=== PATIENT | male | born 1960 | race Caucasian/White ===

== ENCOUNTER → 2017-04-18 12:47 | Outpatient (CLI) | payer MEDICARE, SELFPAY ==
[2017-04-18 16:10] VITALS: BP 140/92; BP 170/97; PULSE 74; PULSE 80; PULSE 98; RESP 18; RESP 22; O2SAT 95; O2SAT 98
== END ==
PROVIDERS: PCP Family Medicine; Visit Provider Internal Medicine
DX: J45.909 Unspecified asthma, uncomplicated (principal); K21.9 Gastro-esophageal reflux disease without esophagitis; I25.10 Atherosclerotic heart disease of native coronary artery without angina pectoris; G47.33 Obstructive sleep apnea (adult) (pediatric); Z87.891 Personal history of nicotine dependence
CPT/HCPCS: 94060; 94618; 94640; 94726; 94729

== ENCOUNTER → 2017-05-01 13:50 | Outpatient (POV) | payer MEDICARE, SELFPAY | PROVIDERS: PCP Family Medicine; Visit Provider Internal Medicine | DX: Z00.00 Encounter for general adult medical examination without abnormal findings (principal) ==

== ENCOUNTER → 2017-07-12 15:28 | Outpatient (CLI) | payer MEDICARE, SELFPAY ==
--- NOTE | 2017-07-12 15:31 | XR_ITS ---
XR ankle wt bearing LT min 3V HISTORY: ITS.REASON: pain ORDERING PHYSICIAN: Nan Aguilar DPM PATIENT AGE: 56 years Comparison: 08/31/2015 FINDINGS: There are multiple small bone islands. Hypertrophic changes are present at the distal aspect of the medial and lateral malleolus with calcification of the tip of the medial malleolus consistent with an old avulsion fracture. The joint space is well-preserved. No acute fracture or dislocation. No lytic changes. Nonspecific calcifications are present at the Achilles insertion IMPRESSION: 1 osteopoikilosis. 2. Hypertrophic changes at the medial and lateral malleolus with old avulsion injury at the tip of the medial malleolus
--- NOTE | 2017-07-12 15:31 | XR_ITS ---
XR foot wt bearing RT 3V HISTORY: Foot pain ITS.REASON: pain ORDERING PHYSICIAN: Nan Aguilar DPM PATIENT AGE: 56 years COMPARISON: 08/31/2015 FINDINGS: No fracture or dislocation. No lytic or blastic change. There is normal mineralization.. The joint spaces are well-preserved. No significant degenerative/arthritic changes. No erosive changes evident. There are numerous small bone islands within the fluid and ankle. Mild hypertrophic changes are present along the dorsal distal aspect of the first metatarsal and midfoot dorsally. There is normal alignment. IMPRESSION: 1. Osteopoikilosis 2. Mild hypertrophic changes of the midfoot dorsally and the distal first metatarsal
--- NOTE | 2017-07-12 15:31 | XR_ITS ---
XR foot wt bearing LT 3V HISTORY: Foot pain ITS.REASON: pain ORDERING PHYSICIAN: Nan Aguilar DPM PATIENT AGE: 56 years COMPARISON: 04/19/2015 FINDINGS: Numerous small bone islands are present involving the bony structures of the foot and ankle. No fracture or dislocation. No lytic changes. Hypertrophic changes are present at the talonavicular joint and metatarsal metatarsal junction dorsally. Normal alignment. IMPRESSION: 1. Osteopoikilosis. 2. Mild degenerative changes with bony hypertrophic changes as described above
--- NOTE | 2017-07-12 15:31 | XR_ITS ---
XR ankle wt bearing RT min 3V HISTORY: ITS.REASON: pain ORDERING PHYSICIAN: Nan Aguilar DPM PATIENT AGE: 56 years Comparison: None FINDINGS: There is minimal hypertrophic change along the tip of the medial malleolus. Multiple bone islands are present. No fracture or dislocation. No significant change from 04/19/2015. IMPRESSION: Osteopoikilosis with minimal degenerative change
== END ==
PROVIDERS: PCP Family Medicine; Visit Provider Podiatrist
DX: M79.671 Pain in right foot; M79.672 Pain in left foot
CPT/HCPCS: 73610; 73630

== ENCOUNTER → 2017-09-11 13:01 | Outpatient (POV) | payer MEDICARE, SELFPAY | PROVIDERS: PCP Family Medicine; Visit Provider Internal Medicine | DX: Z00.00 Encounter for general adult medical examination without abnormal findings (principal) ==

== ENCOUNTER → 2017-10-01 12:57 | Outpatient (CLI) | payer MEDICARE, SELFPAY ==
--- NOTE | 2017-10-01 13:10 | CT_ITS ---
CT chest w con HISTORY: ITS.REASON: EXTRINSIC ASTHMA,BRONCHIECTASIS ORDERING PHYSICIAN: Adriel Carreno MD PATIENT AGE: 56 years COMPARISON: 05/21/2013 TECHNIQUE: Axial images obtained following the administration of 75 mL of Isovue 370 . Sagittal, and coronal reformatted images are also generated and reviewed. All CT scans at the facility use one or more dose reduction, viz: automated exposure control, ma/kV adjustment per patient size (including targeted exams where dose is matched to indication, i.e. head), or iterative reconstruction technique. High-resolution images are also generated and reviewed FINDINGS: No mediastinal or hilar mass or adenopathy. Coronary artery calcification and stents noted. Normal heart size. No evidence of pericardial effusion. There are scattered granulomas.. No suspicious pulmonary nodule. No effusions or infiltrates. There is hyperinflation with attenuation of the peripheral pulmonary vessels consistent with obstructive chronic bronchitis. No central obstructing lesions are evident. No bronchiectasis. No lobar consolidation or collapse. No intralobular septal thickening. There are some minimal fibrotic change in the lung bases There is mild bilateral gynecomastia. There are multiple sclerotic foci within the visualized bony structures consistent with multiple bone islands. Not significant change from the previous exam and is consistent with Osteopoikilosis. IMPRESSION: 1. Overall no change in the hyperinflation with attenuation of the peripheral pulmonary vessels consistent with COPD. No obvious bronchiectasis 2. Osteopoikilosis
== END ==
PROVIDERS: PCP Family Medicine; Visit Provider Internal Medicine
DX: J45.909 Unspecified asthma, uncomplicated (principal); J47.9 Bronchiectasis, uncomplicated
CPT/HCPCS: 71260

== ENCOUNTER 2017-10-01 13:31 | Outpatient (RCR) | payer MEDICARE, SELFPAY | END 2017-10-01 13:32 | disposition home or self-care (01) | LOC: PT 13:31 | PROVIDERS: PCP Family Medicine; Visit Provider Internal Medicine | DX: J45.909 Unspecified asthma, uncomplicated (principal) | CPT/HCPCS: G0237; G0238 ==

== ENCOUNTER → 2017-11-07 13:01 | Outpatient (CLI) | payer MEDICARE, SELFPAY ==
--- NOTE | 2017-11-07 13:03 | MR_ITS ---
MR shoulder LT w con HISTORY:Left arm pain, left shoulder pain. Hematoma left superior scapula, pain when raising arm ITS.REASON: hematoma ORDERING PHYSICIAN: Abel Briones MD PATIENT AGE: 57 years Comparison: None TECHNIQUE: Standard multiplanar multiecho sequences are performed without and with gadolinium enhancement. FINDINGS: There is a lobulated soft tissue mass within the subcutaneous region of the left shoulder. This is superficial to the trapezius muscle with a preserved fat plane between the mass and trapezius muscle. This measures 6.7 cm transverse, 4.3 cm cephalad to caudad, and 2.2 cm in AP dimension. This has a heterogeneous appearance with mostly hypointensity on T1, hyperintensity on T2 demonstrating intense contrast enhancement. Multiple lobules are present within the lesion which have fat signal intensity hyperintense on T1 and showing fat suppression on the fat suppressed images. The lesion is well circumscribed and does not appear to involve the adjacent muscle or scapula. There is some indentation of the trapezius but no evidence of invasion. It is concerning this this represents a soft tissue tumor as opposed to a hematoma. The signal characteristics are not characteristic for a hematoma. 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 Signal characteristics are not typical for hematoma. No obvious muscular invasion
--- NOTE | 2017-11-07 14:31 | HMH.ITSHM ---
potassium furosemide aspirin advair diskus crestor pantoprazole sodium ventolin albuterol hfa doxycycline hyclate irbesartan zyrtec metformin ibuprophen aceteminophen
== END ==
PROVIDERS: PCP Family Medicine; Visit Provider Surgery
DX: T14.8XXA Other injury of unspecified body region, initial encounter (principal); M25.512 Pain in left shoulder
CPT/HCPCS: 73222; A9576

== ENCOUNTER → 2018-02-19 13:01 | Outpatient (POV) | payer MEDICARE, SELFPAY | PROVIDERS: Visit Provider Dermatology | DX: Z00.00 Encounter for general adult medical examination without abnormal findings (principal) ==

== ENCOUNTER → 2018-03-26 10:50 | Outpatient (POV) | payer MEDICARE, SELFPAY | PROVIDERS: Visit Provider Internal Medicine | DX: Z00.00 Encounter for general adult medical examination without abnormal findings (principal) ==

== ENCOUNTER → 2018-04-30 13:27 | Outpatient (POV) | payer MEDICARE, SELFPAY | PROVIDERS: Visit Provider Dermatology | DX: Z00.00 Encounter for general adult medical examination without abnormal findings (principal) ==

== ENCOUNTER → 2018-04-30 14:54 | Outpatient (POV) | payer MEDICARE, SELFPAY | PROVIDERS: Visit Provider Internal Medicine | DX: Z00.00 Encounter for general adult medical examination without abnormal findings (principal) ==

== ENCOUNTER → 2018-11-11 09:52 | Outpatient (CLI) | payer MEDICARE, SELFPAY ==
[2018-11-11 16:20] VITALS: PULSE 63; PULSE 68
== END ==
PROVIDERS: PCP Family Medicine; Visit Provider Internal Medicine
DX: J44.9 Chronic obstructive pulmonary disease, unspecified (principal)
CPT/HCPCS: 94060; 94618; 94640; 94726; 94729

== ENCOUNTER → 2018-11-19 14:28 | Outpatient (POV) | payer MEDICARE, SELFPAY | PROVIDERS: Visit Provider Dermatology | DX: Z00.00 Encounter for general adult medical examination without abnormal findings (principal) ==

== ENCOUNTER → 2019-02-17 12:16 | Outpatient (CLI) | payer MEDICARE, SELFPAY | PROVIDERS: PCP Family Medicine; Visit Provider Urology | DX: E78.5 Hyperlipidemia, unspecified (principal); I10 Essential (primary) hypertension; I25.10 Atherosclerotic heart disease of native coronary artery without angina pectoris; R00.2 Palpitations; R06.00 Dyspnea, unspecified; Z82.49 Family history of ischemic heart disease and other diseases of the circulatory system | CPT/HCPCS: 93270 ==

== ENCOUNTER → 2019-03-03 06:44 | Outpatient (CLI) | payer MEDICARE, SELFPAY ==
--- NOTE | 2019-03-03 | CA_ITS ---
APPROVED REPORT Exam: Pharmacologic Technologist: Aaliyah Rader Ht: 5 ft 11 in Wt: 270 lbs BSA: 2.40 m2 HR: 79 bpm BP: 153/75 mmHg Indications: Chest pain, Shortness of Breath, palpitations Medical History Medications: Furosemide (LASIX),,,,, Aspirin,,,,, Metformin,,,,, Losartan,,,,, Pantoprazole,,,,, Glipizide,,,,, Montelukast,,,,, Finasteride,,,,, Nitroglycerin,,,,, RoSUVASTATIN,,,,, DOxycycline,,,,, Potassium,,,,, Stress Test Details Test: LEXISCAN HR Resting HR: 67 bpm Max Heart Rate (APMHR): 160 bpm Max HR Achieved: 119 bpm Target HR (85% APMHR): 136 bpm % of APMHR: 74 Recovery HR: 87 bpm BP Resting BP: 153.0/75.0 mmHg Max BP: 153.0/75.0 mmHg Recovery BP: 142.0/75.0 mmHg ECG Clinical Exercise duration: 04:00 min Highest Stage Achieved: Stress ECG Conclusion Resting ECG: Sinus rhythm Lexiscan portion completed. Patient complained of nausea and stomach cramping during peak infusion. Symptoms: Nausea and stomach cramping. Resolved in recovery. No chest pain. No shortness of breath. Arrhythmias/Ectopy: Occasional PVC ST-T Changes: less than 1.[address] depression. Conclusion: Images to follow. Electronically signed by : Kin Eaton, 03/03/2019 19:50:55
--- NOTE | 2019-03-03 06:45 | CA_ITS ---
APPROVED REPORT EXAM: Comprehensive 2D, Doppler, and color-flow Echocardiogram [employer] Architect: Aubree Mansfield CRT Ht: 5 ft 11 in Wt: 264lbs BSA: 2.37 BP: 153/74 mmHg Indications: Chest Pain, Shortness of Breath, Obesity, CAD, Hyperlipidemia, Hypertension/HDD 2D Dimensions LVOT 2.16 cm (M/F) 1.5-2.5 M-Mode Dimensions RVDd 3.23 cm (0.9-2.6) LVDd 5.27 cm (3.5-5.7) LVDs 3.57 cm (3.5-5.7) IVSd 1.10 cm (0.6-1.1) PWd 0.89 cm (0.6-1.1) EF (Teich) 60.10% FS 32.30% EDV (Teich) 133.60 mL ESV (Teich) 53.30 mL LV Diastology E/A Ratio 0.73 Mitral Valve MV A Velocity 87.00 (40-130 cm/s) Left Ventricle Left atrium is mildly enlarged, left ventricle is normal size, mild concentric left ventricular hypertrophy, visually estimated ejection fraction 55% with no regional wall motion abnormality. Grade 1 diastolic dysfunction seen without tissue Doppler evidence of raise left atrial pressure. Right Ventricle Right atrium and right ventricle mildly enlarged with normal contractility. Aortic Valve Aortic valve is minimally thickened and fibrosed, there is no aortic stenosis or aortic insufficiency. Mitral Valve Mitral valve leaflets are minimally thickened, there is mild mitral regurgitation. Tricuspid Valve Tricuspid valve is grossly normal, there is mild tricuspid regurgitation. Tricuspid radiation jet velocity is inadequate for calculation of the right ventricular systolic pressure. Pulmonic Valve Pulmonic valve is poorly visualized. Great Vessels Aortic root is normal size. Pericardium No significant pericardial effusion noted. Conclusion 1. Mild mitral enlargement, normal left ventricular size, mild concentric left ventricular hypertrophy, visually estimated ejection fraction 55% with no regional wall motion abnormality, grade 1 diastolic dysfunction seen without tissue Doppler evidence of raise left atrial pressure. 2. Mildly enlarged right ventricle with normal contractility. 3. Mild mitral and tricuspid regurgitation. 4. No significant pericardial effusion noted. Electronically signed by : Kin Eaton, 03/03/2019 20:34:53
--- NOTE | 2019-03-03 06:49 | NM_ITS ---
APPROVED REPORT Exam: Nuclear Stress Test Indication: Chest pain, SOB, HTN, CAD, DM, High Cholesterol, Family history Patient Location: Outpatient Stress Tech: Aaliyah Rader [place] Tech:Rose Nguyen, ARRT, RT (R)(N) Ht: 5 ft 11 in Wt: 270 lbs HR: 79 bpm BP: 153/75 mmHg BSA: 2.40 m2 BMI: 37.6 History: Chest pain, SOB, HTN, CAD, DM, High Cholesterol, Family history Procedure: Patient received a 0.4 mg of intravenous Lexiscan, resting heart rate 79 bpm, resting blood pressure 153/75 mmHg, with Lexiscan maximum heart rate achived was 109 bpm which is % of the maximum predicted heart rate and blood pressure was 149/65 mmHg. With Lexiscan, patient denied any complaint of chest pain. Electrocardiogram Resting electrocardiogram showed sinus rhythm, nonspecific ST-T changes, with Lexiscan there is less than 1.[address] segment depression noted from the baseline EKG. The EKG portion of the Lexiscan Myoview is nondiagnostic. Cardiac Stress and Resting SPECT Images: Cardiac Stress and Resting SPECT images were obtained using technetium 99m Myoview 30.2 mCi stress and 10.86 mCi at rest. Gated SPECT with analysis of segmental wall motion and calculation of the ejection fraction also done. Cardiac stress and rest SPECT images show decreases activity in the anteroapical wall which partially improves on the resting images suggestive of mixed ischemia and scar, computer derived ejection fraction is 65% with mild anteroapical wall hypokinesis. Right ventricle is normal size and contractility. Conclusion: 1. The EKG portion of the Lexiscan Myoview is nondiagnostic. 2. Scintigraphic evidence of mixed ischemia and scar involving the distal anteroapical wall. Computer derived ejection fraction 65% with segmental wall motion abnormality described above, right ventricle is normal size and contractility. 3. Abnormal Lexiscan Myoview study. Electronically signed by : Kin Eaton, 03/03/2019 19:53:44
--- NOTE | 2019-03-03 07:36 | HMH.ITSHM ---
Current Home Medications as stated by this patient Norman Hanley or mechanical service representative. []DOXYCYCLINE FINASTERIDE VENTOLIN NITRO CLARITIN ASA SINGULAIR PANTOPRAZOLE LOSARTAN GLIPIZIDE POTASSIUM FUROSEMIDE CRESTOR ALBUTEROL METFORMIN ADVAIR KARUNAE SoniaYRNIHARIKA STALLWORTHA
== END ==
PROVIDERS: PCP Family Medicine; Visit Provider Urology
DX: E78.5 Hyperlipidemia, unspecified (principal); I10 Essential (primary) hypertension; I25.10 Atherosclerotic heart disease of native coronary artery without angina pectoris; R00.2 Palpitations; R06.00 Dyspnea, unspecified; Z82.49 Family history of ischemic heart disease and other diseases of the circulatory system; R07.9 Chest pain, unspecified
CPT/HCPCS: 78452; 93017; 93306; A9502; J2785

== ENCOUNTER → 2019-03-10 12:46 | Outpatient (CLI) | payer MEDICARE, SELFPAY ==
--- NOTE | 2019-03-10 12:51 | US_ITS ---
PROCEDURE: US ABD. AORTA SCREENING CLINICAL INDICATION: to rule out AAA Evaluate for aortic aneurysm COMPARISON: No exams were available for comparison FINDINGS: Ultrasound performed the abdominal aorta and proximal common iliacs artery. No evidence of aortic aneurysm. IMPRESSION: Negative for abdominal aortic aneurysm Dictated by: Oj Cardoso MD 03/10/2019 17:30 Electronically signed by Oj Cardoso MD in [place] 03/10/2019 17:30
[2019-03-10 15:35] LABS: Alanine Aminotransferase 63 U/L (12-78); Albumin Level 4.1 gm/dL (3.4-5.0); Alkaline Phosphatase 56 U/L (46-116); Aspartate Amino Transferase 25 U/L (15-37); Bilirubin,Direct 0.1 mg/dL (0.0-0.2); Bilirubin,Indirect 0.4 mg/dL (0.0-0.9); Bilirubin,Total 0.5 mg/dL (0.2-1.0); Chol/HDL Ratio 3.8 (1-3.5); Cholesterol 106 mg/dL (140-200); HDL Cholesterol 28 mg/dL (27-67); LDL Cholesterol 42 mg/dL (0-130); Triglycerides 178 mg/dL (30-200); VLDL Cholesterol 36 mg/dL (0-40)
[2019-03-11 14:01] LABS: Testosterone,Total 201 ng/dL (264-916)
== END ==
PROVIDERS: PCP Family Medicine; Visit Provider Internal Medicine
DX: I20.8 Other forms of angina pectoris; E78.2 Mixed hyperlipidemia; I10 Essential (primary) hypertension; R00.2 Palpitations; R06.09 Other forms of dyspnea; R94.39 Abnormal result of other cardiovascular function study; G47.33 Obstructive sleep apnea (adult) (pediatric); Z87.891 Personal history of nicotine dependence; N52.9 Male erectile dysfunction, unspecified
CPT/HCPCS: 36415; 76705; 80061; 80076; 84403

== ENCOUNTER → 2019-03-19 10:23 | Outpatient (CLI) | payer MEDICARE, SELFPAY ==
[2019-03-19 10:41] LABS: Basophils % 0.3 % (0.1-2.0); Eosinophils # 0.2 K/mm3 (0.0-0.4); Eosinophils % 2.7 % (0.1-12.0); Hematocrit 42.8 % (42.0-52.0); Hemoglobin 14.6 g/dL (14.1-18.0); Lymphocytes # 1.4 K/mm3 (0.7-4.5); Lymphocytes % 20.6 % (10-50); Mean Corpuscular HGB Conc 34.2 g/dL (31.8-35.4); Mean Corpuscular Hemoglobin 27.6 pg (27.0-31.2); Mean Corpuscular Volume 80.8 fl (80-94); Mean Platelet Volume 7.7 fl (7.4-10.4); Monocytes # 0.3 K/mm3 (0.1-1.0); Monocytes % 4.3 % (1.7-9.3); Neutrophils # 4.8 K/mm3 (1.8-7.8); Neutrophils % 72.1 % (37.0-80.0); Platelet Count 178 K/mm3 (142-424); Red Cell Distribution Width 13.8 % (11.5-17.5); White Blood Count 6.6 K/mm3 (4.8-10.8)
[2019-03-19 10:46] LABS: Anion Gap 12.8 mEq/L (5-15); Blood Urea Nitrogen 21 mg/dL (7-18); Calcium 9.1 mg/dL (8.5-10.1); Carbon Dioxide 27 mmol/L (21.0-32.0); Chloride 102 mmol/L (98-107); Creatinine,Serum 1.11 mg/dL (0.70-1.30); Estimated Glomerular Filt Rate 68 ml/min (>60); GFR (African American) 82 ML/MIN (>60); Glucose 243 mg/dL (74-106); Potassium 3.8 mmoL/L (3.5-5.1); Sodium 138 mmol/L (137-145)
== END ==
PROVIDERS: Visit Provider Internal Medicine Cardiovascular Disease
DX: R06.09 Other forms of dyspnea (principal); I25.10 Atherosclerotic heart disease of native coronary artery without angina pectoris
CPT/HCPCS: 36415; 80048; 83880; 85025

== ENCOUNTER 2019-03-19 12:29 | Outpatient (RCR) | payer MEDICARE, SELFPAY | END 2019-05-07 10:30 | disposition home or self-care (01) | LOC: PT 12:29 | PROVIDERS: Visit Provider Internal Medicine | DX: Z98.61 Coronary angioplasty status (principal) | CPT/HCPCS: 93798 ==

== ENCOUNTER → 2019-03-24 15:31 | Outpatient (CLI) | payer MEDICARE, SELFPAY ==
[2019-03-24 18:09] LABS: Blood Urea Nitrogen 16 mg/dL (7-18); Calcium 9.3 mg/dL (8.5-10.1); Carbon Dioxide 26 mmol/L (21.0-32.0); Chloride 106 mmol/L (98-107); Estimated Glomerular Filt Rate 86 ml/min (>60); GFR (African American) 104 ML/MIN (>60); Glucose 125 mg/dL (74-106); Sodium 143 mmol/L (137-145)
== END ==
PROVIDERS: Visit Provider Urology
DX: E78.2 Mixed hyperlipidemia (principal); G47.33 Obstructive sleep apnea (adult) (pediatric); I10 Essential (primary) hypertension; I25.10 Atherosclerotic heart disease of native coronary artery without angina pectoris; I27.20 Pulmonary hypertension, unspecified; I51.89 Other ill-defined heart diseases; K21.9 Gastro-esophageal reflux disease without esophagitis; R06.09 Other forms of dyspnea; R07.9 Chest pain, unspecified
CPT/HCPCS: 36415; 80048

== ENCOUNTER → 2019-04-03 14:45 | Outpatient (CLI) | payer MEDICARE, SELFPAY ==
--- NOTE | 2019-04-03 14:49 | XR_ITS ---
PROCEDURE: XR FOOT WT BEARING LT 3V CLINICAL INDICATION: foot pain COMPARISON: FOOT LT 3V from 04/19/2015 FOOT RT 3V from 08/31/2015 [id number] XR foot wt bearing LT 3V from 07/12/2017 [id number] XR foot wt bearing RT 3V from 07/12/2017 FINDINGS: No fracture or dislocation. No lytic or blastic change. There is normal mineralization. Osteoarthritic changes are present at the 1st MTP joint, talonavicular, navicular cuneiform and metatarsal tarsal joint. Other findings:There are numerous sclerotic small foci involving the generalized bony structures consistent with osteopoikilosis. There is borderline pes planus IMPRESSION: Osteoarthritic change with osteopoikilosis Dictated by: Oj Cardoso MD 04/03/2019 15:58 Electronically signed by Oj Cardoso MD in [place] 04/03/2019 15:58
--- NOTE | 2019-04-03 14:49 | XR_ITS ---
PROCEDURE: XR FOOT WT BEARING RT 3V CLINICAL INDICATION: foot pain COMPARISON: FOOT LT 3V from 04/19/2015 FOOT RT 3V from 08/31/2015 [id number] XR foot wt bearing LT 3V from 07/12/2017 [id number] XR foot wt bearing RT 3V from 07/12/2017 FINDINGS: Minimal osteoarthritic changes are present at the talonavicular joint, navicular cuneiform joint, and tarsal metatarsal junction. There are numerous small punctate sclerotic foci of the generalized bony structures consistent with osteopoikilosis. No fracture or dislocation Other findings:None. IMPRESSION: Osteopoikilosis with mild degenerative changes. Overall no significant change Dictated by: Oj Cardoso MD 04/03/2019 15:59 Electronically signed by Oj Cardoso MD in [place] 04/03/2019 15:59
== END ==
PROVIDERS: PCP Family Medicine; Visit Provider Podiatrist
DX: M79.672 Pain in left foot (principal); M79.671 Pain in right foot
CPT/HCPCS: 73630

== ENCOUNTER → 2019-06-10 14:10 | Outpatient (POV) | payer MEDICARE, SELFPAY | PROVIDERS: PCP Family Medicine; Visit Provider Physician Assistant | DX: Z00.00 Encounter for general adult medical examination without abnormal findings (principal) ==

== ENCOUNTER 2019-06-26 15:54 | Emergency (ER) | payer MEDICARE, SELFPAY ==
[2019-06-26 16:28] VITALS: BP 149/68; PULSE 73; RESP 19; TEMP 36.7; O2SAT 99; BMI 35.6
--- NOTE | 2019-06-26 16:33 | HMH.EDUTC ---
[facility] [place] Disposition Clinical Impression: Ingrown toenail Disposition: Home, Self-Care Condition on Discharge: Good Instructions: Ingrown Toenail, DI for Ingrown Toenail Additional Instructions: Follow up with Podiatry as advised for further treatment and follow up for ingrown toenail *Soak foot in warm water and epson salt may help to soften the skin around the toe and help with pain and swelling *Neosporin or Bacitracin around the toenail area may help with prevention of infection if toe is looking red and swollen Return if needed FOllow up with family doctor if needed or any signs of infection such as redness, drainage or streaks Straight to ER if any life threatening symptoms Prescriptions: Bacitracin [Bacitracin Oint 0.9GM UDP] 1 each TP TID 10 Days #30 packet Transmission Status: Pending to [id number] Referrals: Tushar Sánchez [Primary Care Provider] - As needed Yesica Easley APRN [Nurse Practitioner] - As needed (Follow up with Dr Aguilar or Yesica Easley as needed for ingrown toenail) Time of Disposition: 16:58 Medical Decision Making - Alvarez Inquiry Pt receiving controlled substance: No Alvarez was queried for this patient: No Vital Signs: 06/26/19 16:28 Temperature 98.1 F Temperature Source Oral Pulse Rate [Right Brachial] 73 Respiratory Rate 19 Blood Pressure [Right Arm] 149/68 H Blood Pressure Mean [Right Arm] 95 Blood Pressure Source [Right Arm] Automatic Cuff Blood Pressure Position [Right Arm] Sitting 02 Sat by Pulse Oximetry 99 - Physician Consults Physician Consulted: Yesica Singh APRN Time: 16:35 Reason -: Podiatry Eval/Care Comment/Response: Yesica Easley APRN spoke with her about the patient and she advised she will come down from Clinic and look at ingrown nail and talk with patient and do a nail cut back if needed - Reevaluation(s) Time: 16:48 Reevaluation #1: Yesica Easley APRN at bedside trimming nail back Patient tolerating well neosporin applied after finishing and patient advised to keep follow up appointment at the Podiatry Clinic as scheduled [facility] [place] HPI - General Stated complaint: R foot Big Toe ingrown Time Seen by Provider: 06/26/19 16:33 Mode of Arrival: Ambulatory Source of Information: Patient Limitations: No Limitations Description of Symptoms (Recalled from Triage Doc. by RN): Pt has been having trouble with an ingrown toenail on his right great toe for 4 days HEENT Symptoms (Recalled from RN notes): No Resp Symptoms (Recalled from RN notes): No Skin Symptoms (Recalled from RN notes): No MS Symptoms (Recalled from RN notes): No Functional Status (Recalled from RN notes): na - History of Present Illness Provider Complaint: Patient state that he has been having trouble out of ingrown toe nail for the last 4 days State that he has been doing cardiac rehab, and takes plavix and it hurts when he tries to walk States that he has been taking a pair of scissors and trying to dig the nail out but has a corner that is poking him States that he usually sees Dr Aguilar but called the clinic earlier and they couldnt get him in so he came to see if we could get it out - Related Data Home Medications Medication Instructions Recorded Confirmed albuterol sulfate 90 mcg/actuation 2 puffs INHALATION QID 17 Days 05/29/17 06/10/19 aerosol inhaler montelukast 10 mg tablet 10 mg PO HS 90 Days 05/29/17 06/10/19 pantoprazole 40 mg tablet,delayed 40 mg PO BID 30 Days 05/29/17 06/10/19 release metformin 500 mg tablet 1,000 mg PO BID 90 Days #360 tab 02/19/18 06/10/19 Aspirin [Aspir 81] 81 mg PO DAILY 12/20/18 06/10/19 Potassium Chloride [Pot Chlor 10 10 meq PO DAILY 12/20/18 06/10/19 mEq Tab] finasteride 5 mg tablet 5 mg PO DAILY 02/17/19 06/10/19 glipizide 2.5 mg tablet, extended 2.5 mg PO DAILY 02/17/19 06/10/19 release 24 hr nitroglycerin 0.4 mg sublingual 0.4 mg SUBLINGUAL Q5M PRN 02/17/19 06/10/19 tablet rosuvastatin 5 mg tablet 5 mg PO HS ta
--- NOTE | 2019-06-26 16:43 | PC.NURSE ---
Anaya from Dr. Sanford office @ bedside
[2019-06-26 17:00] VITALS: BP 140/70; PULSE 75; RESP 16; TEMP 36.8; O2SAT 98
== END 2019-06-26 17:06 | disposition home or self-care (01) ==
PROVIDERS: Emergency Provider Nurse Practitioner; PCP Family Medicine
DX: L60.0 Ingrowing nail (principal); I10 Essential (primary) hypertension; E78.5 Hyperlipidemia, unspecified; J44.9 Chronic obstructive pulmonary disease, unspecified; K21.9 Gastro-esophageal reflux disease without esophagitis; E11.9 Type 2 diabetes mellitus without complications; Z79.899 Other long term (current) drug therapy
CPT/HCPCS: G0463; 99201

== ENCOUNTER → 2019-07-31 12:54 | Outpatient (CLI) | payer MEDICARE, SELFPAY ==
--- NOTE | 2019-07-31 12:56 | US_ITS ---
APPROVED REPORT Exam Type: Lower Extremity Segmental Pressures Air Director: Nhi Hampton RVT Indications Claudication: Bilaterally Rest Pain: Bilaterally Numbness/Tingling Edema History of Smoking skin color changes shannon Risk Factors Hypertension Hyperlipidemia Diabetes History of Smoking Pressures/Indices Right Indices Left Indices Brachial 148.00 mmHg Brachial 149.00 mmHg Low Thigh 159.00 mmHg 1.07 Low Thigh 168.00 mmHg 1.13 Calf 158.00 mmHg 1.06 Calf 169.00 mmHg 1.13 Ankle(PT) 168.00 mmHg 1.13 Ankle(PT) 166.00 mmHg 1.11 Ankle(DP) 163.00 mmHg 1.09 Ankle(DP) 166.00 mmHg 1.11 Digit 170.00 mmHg 1.14 Digit 196.00 mmHg 1.32 Findings RT SETH:1.13 LT SETH:1.11 RT TBI:1.14 LT TBI:1.32 NORMAL PULSES BILATERAL NORMAL WAVEFORMS BILATERAL Conclusion Normal appearing resting noninvasive lower extremity arterial study. Electronically signed by : Oj Cardoso MD 07/31/2019 15:16:58
== END ==
PROVIDERS: PCP Family Medicine; Visit Provider Podiatrist
DX: R09.89 Other specified symptoms and signs involving the circulatory and respiratory systems (principal)
CPT/HCPCS: 93923

== ENCOUNTER 2019-07-31 13:32 | Emergency (ER) | payer MEDICARE, SELFPAY ==
[2019-07-31] VITALS (9 sets, daily range): BP systolic 115–144; BP diastolic 47–87; PULSE 56–92; RESP 18–20; TEMP 36.7–36.8; O2SAT 96–100; BMI 33.4
--- NOTE | 2019-07-31 14:31 | HMH.EDGENADL ---
ED Disposition Clinical Impression: Chronic pain of left ankle, Chronic left lower quadrant pain, Right inguinal hernia, Osteopoikilosis Disposition: Home, Self-Care Condition on Discharge: Good Instructions: DI for Groin Hernia, DI for Abdominal Pain-Adult, DI for Ankle Pain Additional Instructions: Follow-up with your primary care doctor for further care of your abdominal and ankle pain and for evaluation of your hernia in your right groin. Referrals: Tushar Sánchez [Primary Care Provider] - - Critical Care Critical Care Time: No Attestation: On 07/31/19, the high probability of a clinically significant, sudden or life threatening deterioration of the following system(s) required my full and direct attention, intervention and personal management. The time I documented below is in addition to time spent performing reported procedures but includes the following listed in this critical care notation. Medical Decision Making - Alvarez Inquiry Pt receiving controlled substance: No Vital Signs: 07/31/19 13:33 07/31/19 14:03 07/31/19 14:30 Temperature 98.1 F Temperature Source Oral Pulse Rate Pulse Rate [Radial] 71 82 80 Respiratory Rate 18 18 Blood Pressure Blood Pressure [Right Arm] 134/75 115/47 L 144/59 H Blood Pressure Mean [Right Arm] 94 69 87 Blood Pressure Source [Right Arm] Automatic Cuff Automatic Cuff Automatic Cuff Blood Pressure Position [Right Arm] Sitting Sitting Sitting 02 Sat by Pulse Oximetry 97 96 99 Oxygen Delivery Method Room Air Room Air Room Air 07/31/19 15:00 07/31/19 15:30 07/31/19 16:00 Temperature Temperature Source Pulse Rate Pulse Rate [Radial] 86 58 L 64 Respiratory Rate 20 20 18 Blood Pressure Blood Pressure [Right Arm] 130/82 126/63 139/58 L Blood Pressure Mean [Right Arm] 98 84 85 Blood Pressure Source [Right Arm] Automatic Cuff Automatic Cuff Automatic Cuff Blood Pressure Position [Right Arm] Supine Supine Supine 02 Sat by Pulse Oximetry 98 99 99 Oxygen Delivery Method Room Air Room Air Room Air 07/31/19 16:30 07/31/19 17:00 07/31/19 17:37 Temperature 98.2 F Temperature Source Pulse Rate 85 Pulse Rate [Radial] 64 56 L Respiratory Rate 18 18 20 Blood Pressure 140/87 Blood Pressure [Right Arm] 134/55 L 142/70 H Blood Pressure Mean [Right Arm] 81 94 Blood Pressure Source [Right Arm] Automatic Cuff Blood Pressure Position [Right Arm] Supine 02 Sat by Pulse Oximetry 99 100 Oxygen Delivery Method Room Air Room Air - Lab Data Lab results reviewed: Yes: I reviewed the patient's lab results. Lab Results 07/31/19 13:35: WBC 10.5, RBC 5.49, Hgb 15.1, Hct 46.7, MCV 85.1, MCH 27.5, MCHC 32.4, RDW 13.9, Plt Count 161, MPV 7.8, Neut % (Auto) 80.6 H, Lymph % (Auto) 14.6, Rice % (Auto) 3.9, Eos % (Auto) 0.3, Baso % (Auto) 0.6, Neut # (Auto) 8.4 H, Lymph # (Auto) 1.5, Rice # (Auto) 0.4, Eos # (Auto) 0.0, Baso # (Auto) 0.1 07/31/19 13:35: Sodium 139, Potassium 4.1, Chloride 101, Carbon Dioxide 28, Anion Gap 14.1, BUN 19, Creatinine 0.80, Estimated Creat Clear 139, Estimated GFR 99, Est GFR ( Amer) 119, Glucose 159 H, Calcium 10.2, Total Bilirubin 0.6, AST 38, ALT 39, Alkaline Phosphatase 53, Total Protein 8.0, Albumin 4.8, Globulin 3.2, Albumin/Globulin Ratio 1.5, Amylase 75, Lipase 32 07/31/19 13:45: Urine Color Yellow, Urine Appearance Clear, Urine pH 6.0, Ur Specific [place] 1.020, Urine Protein Negative, Urine Glucose (UA) Negative, Urine Ketones Negative, Urine Blood Negative, Urine Nitrate Negative, Urine Bilirubin Negative, Urine Urobilinogen 0.2, Ur Leukocyte Esterase Negative, Urine RBC Occasional, Urine WBC None, Ur Squamous Epith Cells Occasional, Urine Bacteria None Result diagrams: 07/31/19 13:35 07/31/19 13:35 Orders (Tests/Meds): ED MEDICATIONS Discontinued Medications Generic Name Dose Route Start Last Admin Trade Name Freq PRN Reason Stop Dose Admin Ioversol 75 ml 07/31/19 15:25 07/31/19 15:26 Rad-Opt
--- NOTE | 2019-07-31 14:46 | CT_ITS ---
PROCEDURE: CT ABDOMEN PELVIS W CON CLINICAL INDICATION: LLQ pain COMPARISON: CT ABDOMEN PELVIS W CON from 12/20/2018 TECHNIQUE: IV Contrast: 75ML OPTIRAY 350 Oral Contrast None Axial images obtained with sagittal and coronal reformats. All CT scans at the facility use one or more dose reduction, viz: automated exposure control, ma/kV adjustment per patient size (including targeted exams where dose is matched to indication, i.e. head), or iterative reconstruction technique. FINDINGS: Lung bases are clear. The enhanced liver, gallbladder, left kidney, adrenal glands, pancreas, the spleen is unremarkable. 15 millimeter right interpolar renal cyst is again noted. There is a small hiatal hernia. Aorta, small large bowel, appendix, and the soft tissues are unremarkable. CT scan of the pelvis with contrast: Fat filled right inguinal hernia is noted. Prostate is grossly enlarged indenting the base of the bladder. Seminal vessels and the soft tissues are intact. Bony structures are remarkable for innumerable punctate sclerotic lesions throughout all the bony structures. IMPRESSION: Prostatic enlargement, stable diffuse sclerotic lesions throughout the skeleton. This could be secondary to osteoblastic metastatic disease or osteopoikilosis Dictated by: Marc Butts 07/31/2019 15:42 Electronically signed by Marc Butts in [place] 07/31/2019 15:42
--- NOTE | 2019-07-31 14:47 | XR_ITS ---
PROCEDURE: XR ANKLE LT MIN 3V CLINICAL INDICATION: pain, swelling COMPARISON: ANKLE 3V LT from 04/19/2015 ANKLE 3V RT from 08/31/2015 [id number] XR ankle wt bearing RT min 3V from 07/12/2017 FINDINGS: The ankle mortise is intact. There are few small smooth ossicles inferior to the medial and lateral malleoli. Calcaneal spurs are noted. There is no acute fracture or dislocation. IMPRESSION: Calcaneal spurs, no acute fracture Dictated by: Marc Butts 07/31/2019 16:10 Electronically signed by Marc Butts in [place] 07/31/2019 16:10
[2019-07-31 14:52] LABS: Microscopic, Urine URINE MICROSCOPIC (MICROSCOPIC)
[2019-07-31 14:53] LABS: Basophils # 0.1 K/mm3 (0-0.2); Basophils % 0.6 % (0.1-2.0); Eosinophils % 0.3 % (0.1-12.0); Hematocrit 46.7 % (42.0-52.0); Hemoglobin 15.1 g/dL (14.1-18.0); Lymphocytes # 1.5 K/mm3 (0.7-4.5); Lymphocytes % 14.6 % (10-50); Mean Corpuscular HGB Conc 32.4 g/dL (31.8-35.4); Mean Corpuscular Hemoglobin 27.5 pg (27.0-31.2); Mean Corpuscular Volume 85.1 fl (80-94); Mean Platelet Volume 7.8 fl (7.4-10.4); Monocytes # 0.4 K/mm3 (0.1-1.0); Monocytes % 3.9 % (1.7-9.3); Neutrophils # 8.4 K/mm3 (1.8-7.8); Neutrophils % 80.6 % (37.0-80.0); Platelet Count 161 K/mm3 (142-424); Red Blood Count 5.49 M/mm3 (4.60-6.20); Red Cell Distribution Width 13.9 % (11.5-17.5); White Blood Count 10.5 K/mm3 (4.8-10.8)
[2019-07-31 14:54] LABS: Appearance,Urine CLEAR (Clear); Bilirubin,Urine Negative (Negative); Blood, Urine Negative (Negative); Color,Urine YELLOW (Yellow); Glucose,Urine (UA) Negative (Negative); Ketones,Urine Negative (Negative); Leukocyte Esterase,Urine Negative (Negative); Nitrate,Urine Negative (Negative); Protein,Urine Negative (Negative); Urobilinogen,Urine 0.2 EU/dl (0.2)
[2019-07-31 14:58] LABS: Alanine Aminotransferase 39 U/L (12-78); Albumin Level 4.8 g/dl (3.5-5.0); Albumin/Globulin Ratio 1.5 (1.1-1.8); Alkaline Phosphatase 53 U/L (38-126); Amylase 75 U/L (30-110); Anion Gap 14.1 mEq/L (5-15); Aspartate Amino Transferase 38 U/L (17-59); Bilirubin,Total 0.6 mg/dl (0.2-1.3); Blood Urea Nitrogen 19 mg/dl (9-20); Calcium 10.2 mg/dl (8.4-10.2); Carbon Dioxide 28 mmol/L (22.0-30.0); Chloride 101 mmol/L (98-107); Creatinine Clearance Estimated 139 mL/min (50-200); Estimated Glomerular Filt Rate 99 ml/min (>60); GFR (African American) 119 ML/MIN (>60); Globulin 3.2 g/dL (1.3-3.2); Glucose 159 mg/dl (74-100); Lipase 32 U/L (23-300); Potassium 4.1 mmoL/L (3.5-5.1); Sodium 139 mmol/L (136-145)
[2019-07-31 15:03] LABS: RBC,Urine Occasional #/hpf (0-3); Squamous Epithelial Cell,Urine Occasional #/hpf (0-5)
== END 2019-07-31 17:58 | disposition home or self-care (01) ==
PROVIDERS: Emergency Provider Emergency Medicine; PCP Family Medicine
DX: M25.572 Pain in left ankle and joints of left foot (principal); K40.90 Unilateral inguinal hernia, without obstruction or gangrene, not specified as recurrent; Q78.8 Other specified osteochondrodysplasias; E78.5 Hyperlipidemia, unspecified; I10 Essential (primary) hypertension; J44.9 Chronic obstructive pulmonary disease, unspecified; I25.10 Atherosclerotic heart disease of native coronary artery without angina pectoris; K21.9 Gastro-esophageal reflux disease without esophagitis; Z88.0 Allergy status to penicillin; Z88.2 Allergy status to sulfonamides; Z88.8 Allergy status to other drugs, medicaments and biological substances; E11.65 Type 2 diabetes mellitus with hyperglycemia; Z79.899 Other long term (current) drug therapy
CPT/HCPCS: 73610; 74177; 80053; 81001; 82150; 83690; 85025; 93923; 96365; 99284; Q9967

== ENCOUNTER → 2019-08-26 14:44 | Outpatient (CLI) | payer MEDICARE, SELFPAY | PROVIDERS: PCP Family Medicine; Visit Provider Urology | DX: R00.2 Palpitations (principal) | CPT/HCPCS: 93270 ==

== ENCOUNTER → 2019-09-09 13:17 | Outpatient (POV) | payer MEDICARE, SELFPAY | PROVIDERS: Visit Provider Dermatology | DX: Z00.00 Encounter for general adult medical examination without abnormal findings (principal) ==

== ENCOUNTER → 2019-12-01 10:24 | Outpatient (CLI) | payer MEDICARE, SELFPAY ==
[2019-12-01 13:21] LABS: Coronavirus 19 IgG Antibody Negative (Negative); Coronavirus 19 IgM Antibody Negative (Negative)
== END ==
PROVIDERS: Visit Provider Surgery
DX: Z01.818 Encounter for other preprocedural examination (principal); Z12.11 Encounter for screening for malignant neoplasm of colon; Z13.810 Encounter for screening for upper gastrointestinal disorder
CPT/HCPCS: 36415; 86328

== ENCOUNTER 2019-12-02 08:42 | Day surgery (SDC) | payer MEDICARE, SELFPAY ==
[2019-11-27 11:06] VITALS: BMI 36.2
[2019-12-02] VITALS (7 sets, daily range): BP systolic 99–148; BP diastolic 49–74; PULSE 56–86; RESP 16–18; TEMP 36.7–36.8; O2SAT 93–99
[2019-12-02 09:55] LABS: POC Glucose,Bedside 150 (70-110)
--- NOTE | 2019-12-02 10:10 | HMH.GSHP ---
HPI HPI: Patient presents for colonoscopy and EGD. He had previously mentioned that he is due for a colonoscopy. He did have a colonoscopy by Dr. Herman about 7 years ago and it was recommended he undergo follow-up colonoscopy in 5 years due to polyps. Patient recently had seen cardiology. Today he states that he had previously undergone upper endoscopy and wonders if this needs to be done as well as he does have some symptoms of substernal pain and discomfort. He describes symptoms consistent with dyspepsia with some minor dysphagia mostly when eating hot foods . He is on pantoprazole. He states that during his previous upper endoscopy was told he had gastritis. [facility] History I have reviewed the patient's past medical history: Yes Medical History: Reports:: Arrhythmia, Asthma, Chronic Obstructive Pulmonary Disease (COPD), Coronary Artery Disease, Diabetes Mellitus Type 2, Gastroesophageal Reflux Disease(GERD), Hyperlipidemia, Hypertension, Palpitations Denies:: Cancer, Diabetes Mellitus Type 1, Internal Pacemaker, MRSA, Seizures *Have you ever received a pneumonia vaccine?: No *Have you received a flu vaccine this season?: No Other Medical History: Reports: Arthritis, Sinus Problems Laterality Cases: Left: Arthroscopy Shoulder, Bilateral: Tonsillectomy Other Surgeries: Yes: Cardiac Catheterization, Cardiac Surgery, Colonoscopy, Coronary Stent, Hernia Repair, Other. No: Pacemaker Amputation: No Fractures: No - *Social History Smoking Status: Never smoker Tobacco Type: cigarettes Alcohol Intake: never Alcohol Intake Frequency:: other Substance Use Type: denies use *Occupational Status:: unemployed Housing: house Household Members: none *Travel in the last 8 weeks: None Family Hx:: Diabetes, Stroke, Cancer, Hyperlipidemia, Heart Attack, Asthma Review of Systems - Review of Systems Review of systems:: pertinent systems reviewed and negative unless documented below Meds Home Medications Medication Instructions Recorded Confirmed Type albuterol sulfate 90 mcg/actuation 2 puffs INHALATION QID 17 Days 05/29/17 12/02/19 History aerosol inhaler montelukast 10 mg tablet 10 mg PO HS 90 Days 05/29/17 12/02/19 History pantoprazole 40 mg tablet,delayed 40 mg PO BID 30 Days 05/29/17 12/02/19 History release metformin 500 mg tablet 1,000 mg PO BID 90 Days #360 tab 02/19/18 12/02/19 History Aspirin [Aspir 81] 81 mg PO DAILY 12/20/18 12/02/19 History finasteride 5 mg tablet 5 mg PO DAILY 02/17/19 12/02/19 History nitroglycerin 0.4 mg sublingual 0.4 mg SUBLINGUAL Q5M PRN 02/17/19 12/02/19 History tablet rosuvastatin 5 mg tablet 5 mg PO HS tab 02/17/19 12/02/19 History Albuterol Sulfate [Albuterol 1 vial IH DAILYP PRN 03/12/19 12/02/19 History 0.083% 2.5mg/3mL neb] Fluticasone Propionate [Flonase 2 spray NS HS 03/12/19 12/02/19 History Allergy Relief NS] Fluticasone/Salmeterol [Advair 1 puffs IH DAILY 03/12/19 12/02/19 History 250/50 diskus] Losartan Potassium 100 mg PO DAILY 03/12/19 12/02/19 History cetirizine 10 mg tablet 10 mg PO DAILY 03/19/19 12/02/19 History fexofenadine 180 mg tablet 180 mg PO DAILY 03/19/19 12/02/19 History ammonium lactate 12 % lotion 1 % TOPICAL DAILY 04/03/19 12/02/19 History blood sugar diagnostic 1 strip .ROUTE .MEDSUPPLY #10 each 04/03/19 12/02/19 History lancets 1 each .ROUTE .MEDSUPPLY #50 each 04/03/19 12/02/19 History furosemide 20 mg tablet 20 mg PO DAILY 06/10/19 12/02/19 History potassium chloride 10 mEq 10 meq PO DAILY 06/10/19 12/02/19 History tablet,extended release Clopidogrel Bisulfate [Plavix 75mg 75 mg PO DAILY 06/26/19 12/02/19 History Tab] doxycycline hyclate 100 mg tablet 100 mg PO BID tab 07/07/19 12/02/19 History glipizide 2.5 mg tablet, extended 2.5 mg PO DAILY PRN 07/07/19 12/02/19 History release 24 hr diclofenac sodium 1 % topical gel 4 g TOPICAL QID PRN #30 g 07/22/19 12/02/19 Rx Bacitracin [Bacitracin Oint 0.9GM 1 each TP TID 11/27/19 12/02/19 His
--- NOTE | 2019-12-02 10:11 | P.PN_ITS ---
[facility] Anesthesia Checklist - Patient Identification Patient Identification: Arm Band, Verbal (Name & ) - Structural Data Admitted From: Home Planned Operative Procedure/s: colon Consent for Planned Operative Procedure(s) Verified: Yes Verified Documents: History and Physical - NPO Status Verified Time NPO: 00:00 - Chart Verification Results Verified: CBC, H & H - Additional verifications Patient : No Anesthesia Reactions: No Hx Blood Transfusions: No Blood Transfusion Reaction: No Cephalosporin Allergy: No Previous Colonoscopy: Yes - Cardiovascular Assessment Heart Sounds: S1 & S2 Pulse Strength: Baseline Pulse Rhythm: Regular Peripheral Edema: No - Airway Assessment C-Spine Mobility Assessed: Yes TMJ Mobility Assessed: Yes Dentition: Good Dentition - Neurological Assessment Level of Consciousness: Awake, Alert, Appropriate Hx Seizures: No Numbness or tingling in extremities: No - Anesthesia Plan Anesthesia Risk discussed: Yes Anesthesia Plan: Verified ASA Class: III Anesthesia Type: MAC [facility] History I have reviewed the patient's past medical history: Yes Medical History: Reports:: Arrhythmia, Asthma, Chronic Obstructive Pulmonary Disease (COPD), Coronary Artery Disease, Diabetes Mellitus Type 2, Gastroesophageal Reflux Disease(GERD), Hyperlipidemia, Hypertension, P alpitations Denies:: Cancer, Diabetes Mellitus Type 1, Internal Pacemaker, MRSA, Seizures *Have you ever received a pneumonia vaccine?: No *Have you received a flu vaccine this season?: No Other Medical History: Reports: Arthritis, Sinus Problems Anesthesia experience/problems:: none Laterality Cases: Left: Arthroscopy Shoulder, Bilateral: Tonsillectomy Other Surgeries: Yes: Cardiac Catheterization, Cardiac Surgery, Colonoscopy, Coronary Stent, Hernia Repair, Other. No: Pacemaker Amputation: No Fractures: No - *Social History Smoking Status: Never smoker Tobacco Type: cigarettes Alcohol Intake: never Alcohol Intake Frequency:: other Substance Use Type: denies use *Occupational Status:: unemployed Housing: house Household Members: none *Travel in the last 8 weeks: None Family Hx:: Diabetes, Stroke, Cancer, Hyperlipidemia, Heart Attack, Asthma
--- NOTE | 2019-12-02 11:30 | HMH.SCOPE ---
- Procedure: Date: 12/02/19 Patient Date of :: 1960 Procedure Performed:: Esophagogastroduodenoscopy with biopsies Colonoscopy with polypectomy by snare and biopsy forceps Indications:: Patient presents for colonoscopy and EGD. He had previously mentioned that he is due for a colonoscopy. He did have a colonoscopy by Dr. Herman about 7 years ago and it was recommended he undergo follow-up colonoscopy in 5 years due to polyps. Patient recently had seen cardiology. Today he states that he had previously undergone upper endoscopy and wonders if this needs to be done as well as he does have some symptoms of substernal pain and discomfort. He describes symptoms consistent with dyspepsia with some minor dysphagia mostly when eating hot foods . He is on pantoprazole. He states that during his previous upper endoscopy was told he had gastritis. Performing Provider:: Abel Briones MD Referring Provider:: Tushar Sánchez Sedation:: MAC sedation Procedure:: Patient was taken to endoscopy procedure room. Attention was first turned to upper endoscopy. Adequate intravenous sedation was achieved. Olympus endoscope was inserted via the oropharynx advanced to the esophagus. Esophagus appeared overall normal. Gastroesophageal junction was encountered at approximately 40 cm from the incisors. Stomach was cannulated and insufflated. There was some diffuse moderate nonerosive gastritis characterized by significant erythema in patches. Gastric antral mucosal biopsies obtained for CLOtest for H. pylori. Gastric biopsy was obtained of the gastritis. There were a couple small possibility fundic gland polyps removed with cold biopsy forceps. The endoscope was able to be advanced through the pylorus and into the distal duodenum which appeared unremarkable. Endoscope was withdrawn. Next attention was turned to colonoscopy. Variable stiffness Olympus colonoscope was inserted via the anus. With some minor difficulty due to appreciable floppiness and atony of the sigmoid colon colonoscope was ultimately advanced into the cecum. Ileocecal valve and appendiceal orifice were clearly identified. However, colonic preparation was fair but adequate visualization was achieved with thorough irrigation and suctioning. Colonoscope was slowly withdrawn through the colon. In the descending colon there is a moderate polyp which was measuring about 10 mm removed with cold cutting snare. Rectosigmoid polyp, diminutive in nature was removed with cold cutting snare. There is a small rectal polyp removed with cold cutting snare. Colonoscope was withdrawn. Findings:: Gastritis Probable fundic gland polyps Approximately 10 mm descending colon polyp removed with cold cutting snare Diminutive rectosigmoid polyp removed with cold cutting snare Diminutive rectal polyp removed with cold cutting snare Recommendations:: Likely repeat colonoscopy 3 years Complications:: None immediately apparent Estimated blood obtained (mL): 4
== END 2019-12-02 11:28 | disposition home or self-care (01) ==
LOC: OUTP 08:44
PROVIDERS: PCP Family Medicine; Visit Provider Surgery
PROC: 0DJ08ZZ Inspection of Upper Intestinal Tract, Via Natural or Artificial Opening Endoscopic (ICD-10-PCS; CPT 43235; principal; 2019-12-02 09:30)
DX: Z12.11 Encounter for screening for malignant neoplasm of colon (principal); K31.7 Polyp of stomach and duodenum; K29.70 Gastritis, unspecified, without bleeding; K63.5 Polyp of colon; K62.1 Rectal polyp; Z86.010 Personal history of colon polyps; Z87.19 Personal history of other diseases of the digestive system; E11.9 Type 2 diabetes mellitus without complications; E78.5 Hyperlipidemia, unspecified; I10 Essential (primary) hypertension; J44.9 Chronic obstructive pulmonary disease, unspecified; I25.10 Atherosclerotic heart disease of native coronary artery without angina pectoris; R00.2 Palpitations
CPT/HCPCS: 43239; 45385; 82962; 87339; 88305; J2704

== ENCOUNTER 2019-12-04 14:47 | Emergency (ER) | payer MEDICARE, SELFPAY ==
[2019-12-04 14:49] VITALS: BP 176/91; PULSE 68; RESP 16; TEMP 36.6; O2SAT 98; BMI 34.8
--- NOTE | 2019-12-04 15:18 | HMH.EDGENADL ---
ED Disposition Clinical Impression: Strain of lumbar region Qualifiers: Encounter type: initial encounter Qualified Code(s): S39.012A - Strain of muscle, fascia and tendon of lower back, initial encounter Disposition: Home, Self-Care Condition on Discharge: Good Instructions: DI for Low Back Pain Additional Instructions: If needed, you can use Tylenol 650 mg every 6 hours as well. Perform gentle stretching exercises at home and consider using heating pads, massage to help with your pain as well. Follow-up with your primary care provider to consider further outpatient imaging and physical therapy if symptoms are not improving over the next 2-3 days. Return to the emergency department if you develop any loss of bowel or bladder control, fever or acute changes in your symptomology. Prescriptions: Cyclobenzaprine HCl [Flexeril 10mg tablet] 5 mg PO TID PRN #5 tab PRN Reason: spasm Prescription Printed Cyclobenzaprine HCl [Flexeril 10mg tablet] 5 mg PO TID PRN #5 tab PRN Reason: spasm Transmission Status: Pending to [id number] Referrals: Tushar Sánchez [Primary Care Provider] - 3 days - Critical Care Critical Care Time: No Attestation: On 12/04/19, the high probability of a clinically significant, sudden or life threatening deterioration of the following system(s) required my full and direct attention, intervention and personal management. The time I documented below is in addition to time spent performing reported procedures but includes the following listed in this critical care notation. Medical Decision Making - Medical Records Medical records reviewed: Yes: I reviewed the patient's medical records. - Alvarez Inquiry Pt receiving controlled substance: No Vital Signs: 12/04/19 14:49 Temperature 98 F Temperature Source Oral Pulse Rate [Radial] 68 Respiratory Rate 16 Blood Pressure [Right Arm] 176/91 H Blood Pressure Mean [Right Arm] 119 Blood Pressure Position [Right Arm] Sitting 02 Sat by Pulse Oximetry 98 Oxygen Delivery Method Room Air - Lab Data Lab results reviewed: Yes: I reviewed the patient's lab results. Lab Results 12/04/19 15:20: Urine Color Yellow, Urine Appearance Clear, Urine pH 7.0, Ur Specific [place] <= 1.005, Urine Protein Negative, Urine Glucose (UA) Negative, Urine Ketones Negative, Urine Blood Negative, Urine Nitrate Negative, Urine Bilirubin Negative, Urine Urobilinogen 0.2, Ur Leukocyte Esterase Negative Orders (Tests/Meds): ED MEDICATIONS Discontinued Medications Generic Name Dose Route Start Last Admin Trade Name Bia PRN Reason Stop Dose Admin Acetaminophen 1,000 mg 12/04/19 15:22 12/04/19 15:24 Acetaminophen 500mg Tab PO 12/04/19 15:23 1,000 mg ONCE ONE Administration ORDERS Category Date Time Status Urinalysis and Microscopic Stat Lab 12/04/19 15:20 Results Medical Decision Narrative: Patient here with back pain that sounds musculoskeletal in nature. Urinalysis reveals no signs of infection and no blood that would suggest obstructive uropathy. No fevers or vertebral tenderness that would suggest epidural abscess or discitis. He does not endorse any radiation of the pain or abdominal pain, unlikely AAA, appendicitis, perforated viscus, bowel obstruction. Symptoms inconsistent with cauda equina. advised Tylenol, gentle stretching and will prescribe muscle relaxers. Recommended follow-up with primary care provider within 2 to 3 days for reevaluation. General Adult HPI - General Chief complaint: Back Pain/Injury Stated complaint: R lower severe back pain Time Seen by Provider: 12/04/19 15:19 Mode of Arrival: Ambulatory Limitations: No Limitations Description of Symptoms (Recalled from ER Triage Doc. by RN): TO ED PER PVT CAR WITH C/O RT SIDE BACK PAIN STATES PAIN STARTED 3 DAYS AGO, WORSE AFTER GETTING OUT OF CAR TODAY FOR 'S APPT. PT STATES PAIN WORSE WITH MOVEMENT - History of Present Illness HPI narrative: T
[2019-12-04 15:29] LABS: Microscopic, Urine URINE MICROSCOPIC (MICROSCOPIC)
[2019-12-04 15:32] LABS: Appearance,Urine CLEAR (Clear); Bilirubin,Urine Negative (Negative); Blood, Urine Negative (Negative); Color,Urine YELLOW (Yellow); Glucose,Urine (UA) Negative (Negative); Ketones,Urine Negative (Negative); Leukocyte Esterase,Urine Negative (Negative); Nitrate,Urine Negative (Negative); Protein,Urine Negative (Negative); Specific Gravity, Urine <= 1.005 (1.005-1.030); Urobilinogen,Urine 0.2 EU/dl (0.2)
[2019-12-04 15:54] VITALS: BP 143/69; PULSE 71; RESP 19; TEMP 36.7; O2SAT 96
== END 2019-12-04 15:55 | disposition home or self-care (01) ==
PROVIDERS: Emergency Provider Emergency Medicine; PCP Family Medicine
DX: S39.012A Strain of muscle, fascia and tendon of lower back, initial encounter (principal); X50.9XXA Other and unspecified overexertion or strenuous movements or postures, initial encounter; I10 Essential (primary) hypertension; E78.5 Hyperlipidemia, unspecified; J44.9 Chronic obstructive pulmonary disease, unspecified; E11.9 Type 2 diabetes mellitus without complications; I25.10 Atherosclerotic heart disease of native coronary artery without angina pectoris; K21.9 Gastro-esophageal reflux disease without esophagitis; Z88.0 Allergy status to penicillin; Z88.2 Allergy status to sulfonamides; Z79.899 Other long term (current) drug therapy
CPT/HCPCS: 81001; 99282

== ENCOUNTER → 2020-07-06 14:28 | Outpatient (CLI) | payer MEDICARE, OTHER, SELFPAY ==
[2020-07-06 16:06] LABS: Prostate Specific Ag Screen 0.7 ng/ml (0.0-4.0)
== END ==
PROVIDERS: Visit Provider Urology
DX: Z12.5 Encounter for screening for malignant neoplasm of prostate (principal)
CPT/HCPCS: 36415; G0103

== ENCOUNTER → 2021-05-24 14:57 | Outpatient (CLI) | payer MEDICARE, SELFPAY ==
--- NOTE | 2021-05-24 15:00 | CA_ITS ---
APPROVED REPORT EXAM: Comprehensive 2D, Doppler, and color-flow Echocardiogram Drilling Manager: IESHA Almeida, RVS Ht: 6 ft 1 in Wt: 266lbs BSA: 2.43 BP: 143/60 mmHg Indications: CAD,DIZZINESS, MOSES, SOA,PHTN, GERD Diastolic dysfunction Echo Enhancing Agent Comments: difficult exam due to patient factors 2D Dimensions IVSd 1.05 cm LVEF (Visual) 59.80 % PWd 1.02 cm LA Volume 58.20 mL LVDd 5.61 cm LA Volume Index 24.00 mL/m2 (M/F) 16-34 LVDs 3.80 cm LVOT 2.08 cm (M/F) 1.5-2.5 M-Mode Dimensions RVDd 1.57 cm (0.9-2.6) LA Diam 3.93 cm (1.9-4.0) LVDd 6.05 cm (3.5-5.7) Ao Diam 3.06 cm (2.0-3.7) LVDs 4.34 cm (3.5-5.7) IVSd 1.25 cm (0.6-1.1) PWd 1.17 cm (0.6-1.1) EF (Teich) 55.60% EPSs 0.51 cm FS 29.50% EDV (Teich) 191.10 mL TAPSE 2.96 (<1.7) ESV (Teich) 84.90 mL LV Diastology E Decel Time 290.00 (160-240 msec) E/A Ratio 0.76 MED E' 5.80 (< 7 cm/sec) E'/MED E' Ratio 13.78 (>14) LAT E' 7.40 (<10 cm/sec) E/LAT E' Ratio 10.80 (>14) Aortic Valve LVOT Max 100.00 (70-110 cm/s) LVOT VTI 22.15 cm AoV Peak Xander. 164.00 (50-130 cm/s) AO Peak GR. 10.70 mmHg AO Mean GR. 5.40 (<5 mmHg) AO VTI 32.67 (18-25 cm) CALI (VTI) 2.30 (2.5-4.5 cm2) Mitral Valve MV A Velocity 105.00 (40-130 cm/s) E/A Ratio 0.76 MV Decel. Time 290.00 (160-240 ms) MV Mean Gr. 2.70 (<2mmHg) Pulmonary Valve PV Peak Velocity 69.00 (50-150 cm/s) Left Ventricle Left atrium is mildly enlarged, left ventricle is normal size, mild concentric left ventricular hypertrophy, estimated ejection fraction 55% with no obvious regional wall motion abnormality, endocardial surfaces are poorly visualized, grade 1 diastolic dysfunction seen without tissue Doppler evidence of raise left atrial pressure. Right Ventricle Right atrium and right ventricle are mildly enlarged with normal contractility. Aortic Valve Aortic valve is minimally thickened and fibrosed there is no aortic stenosis or aortic insufficiency. Mitral Valve Mitral valve is grossly normal, there is trace mitral regurgitation. Tricuspid Valve Tricuspid valve grossly normal, there is trace tricuspid regurgitation, tricuspid regurgitation jet velocity is inadequate for calculation of the right ventricular systolic pressure. Pulmonic Valve Pulmonic valve is poorly visualized. Great Vessels Aortic root is normal size. Inferior vena cava is normal size with normal inspiratory collapse. Pericardium No significant pericardial effusion noted. Conclusion 1. Mild biatrial enlargement, normal left ventricular size, mild concentric left ventricular hypertrophy, estimated ejection fraction 55% with no regional wall motion abnormality, grade 1 diastolic dysfunction seen without tissue Doppler evidence of raise left atrial pressure. 2. Mildly enlarged right ventricle with normal contractility. 3. Trace mitral and tricuspid regurgitation. 4. No significant pericardial effusion noted. 5. Inferior vena cava is normal size with normal inspiratory collapse. Electronically signed by : Kin Eaton MD 05/25/2021 05:35:07
== END ==
PROVIDERS: PCP Family Medicine; Visit Provider Internal Medicine
DX: R06.09 Other forms of dyspnea (principal)
CPT/HCPCS: 93306